=== PATIENT | female | born 1995 | race Caucasian/White ===

== ENCOUNTER 2017-11-23 16:24 | Emergency (ER) | payer OTHER ==
[~2017-11-23 16:24] MED LIST: CIPRO 500MG TA500 MG PO; NEXIUM 40MG40 MG PO
[2017-11-23 17:29] LABS: ABSOLUTE BASOPHIL COUNT 0 /CUMM (0.0-0.2); ABSOLUTE EOSINOPHIL COUNT 0.1 /CUMM (0.0-0.7); ABSOLUTE GRANULOCYTE CT 6.8 /CUMM (1.4-6.5); ABSOLUTE LYMPH COUNT 1.8 /CUMM (1.2-3.4); ABSOLUTE MONOCYTE COUNT 0.7 /CUMM (0.10-0.60); BASOPHIL % 0.2 % (0.0-2.0); EOSINOPHIL % 0.7 % (0-5); GRANULOCYTE % 72.5 % (42.2-75.2); HEMATOCRIT 40.1 % (37-47); MEAN CORPUSCULAR HGB 30.7 PG (27.0-31.0); MEAN CORPUSCULAR HGB CONC 34.2 G/DL (33.0-37.0); MEAN CORPUSCULAR VOLUME 89.7 FL (81.0-99.0); MEAN PLATELET VOLUME 8.6 FL (7.4-10.4); PLATELET COUNT 269 /CUMM (130-400); RBC DISTRIBUTION WIDTH 12.7 % (11.5-14.5); RED BLOOD CELL CT 4.48 /CUMM (4.20-5.40); WHITE BLOOD CELL COUNT 9.4 /CUMM (4.8-10.8)
--- NOTE | 2017-11-23 19:30 | ULTRASOUND REPORT ---
EXAMINATION: US ABDOMEN LIMITED CLINICAL INFORMATION: Right upper quadrant pain. COMPARISON: Abdominal ultrasound 08/29/2014 TECHNIQUE: Real-time imaging of the right upper quadrant abdominal viscera. Examination limited secondary to bowel gas and patient body habitus. FINDINGS: PANCREAS: The pancreas is obscured by overlying bowel gas and therefore cannot be accurately evaluated. LIVER: Poorly visualized. No gross hepatic lesion. No intrahepatic biliary ductal dilatation. GALLBLADDER: The gallbladder is physiologically distended. Some small echogenic foci within the gallbladder lumen likely represent a combination of echogenic bile and tiny gallstones. Negative sonographic Gomez's sign. COMMON BILE DUCT: Normal in caliber measuring 0.8 cm in diameter. RIGHT KIDNEY: Normal. No hydronephrosis. No renal calculi or focal parenchymal lesions. The kidney measures 11.3 cm in maximum dimension. FREE FLUID: None. IMPRESSION: 1. Examination limited secondary to patient body habitus and overlying bowel gas. The pancreas was not clearly visualized and there is poor visualization of the liver. 2. The gallbladder is physiologically distended with suggestion of echogenic bile and tiny gallstones. There is no ultrasound evidence to suggest acute cholecystitis. Clinical correlation recommended.
--- NOTE | 2017-11-23 22:00 | CT SCAN REPORT ---
EXAMINATION: CT ABDOMEN AND PELVIS WITH CONTRAST CLINICAL INFORMATION: Right upper quadrant pain. Concern for cholecystitis. COMPARISON: Same day abdominal ultrasound and abdominal ultrasound 08/29/2014 TECHNIQUE: Multidetector volumetric imaging was performed of the abdomen and pelvis following IV administration of 95 mL of Optiray 320 intravenous contrast. Sagittal and coronal reformatted images were obtained on the technologist's workstation. Examination limited secondary to quantum mottle artifact from patient body habitus. DLP: 1628 mGy-cm FINDINGS: Visualized lung bases are well aerated. The liver demonstrates normal size, contour and attenuation. No intrahepatic biliary ductal dilatation. The gallbladder is physiologically distended. Small gallstones are present dependently within the gallbladder. No CT evidence of gallbladder wall thickening. The pancreas, spleen and adrenal glands are unremarkable. Small splenule. The kidneys demonstrate symmetric enhancement without hydronephrosis. Retroaortic left renal vein. Postsurgical changes of the stomach. Normal caliber loops of small and large bowel. Normal appendix. The bladder is decompressed and therefore not accurately evaluated. No gross free pelvic fluid. No pelvic lymphadenopathy. Mild degenerative changes of the spine. IMPRESSION: No CT evidence for acute intra-abdominal or pelvic pathology. Cholelithiasis. No CT evidence to suggest acute cholecystitis. Clinical correlation recommended. Postsurgical changes of the stomach.
--- NOTE | 2017-11-23 22:34 | ED GENERAL ADULT ---
See Addendum History of Present Illness General Chief Complaint: Abdominal Pain/Flank Pain Stated Complaint: ABD PAIN H/O GALLSTONES Source: patient Exam Limitations: no limitations Vital Signs & Intake/Output Vital Signs & Intake/Output Vital Signs Date Time Temp Pulse Resp B/P B/P Pulse O2 O2 Flow FiO2 Mean Ox Delivery Rate 11/238 98.2 68 18 142/78 97 Room Air 11/23 2051 60 18 150/71 94 Room Air 11/23 1630 97.8 82 15 155/96 96 Room Air ED Intake and Output 11/24 0000 11/23 1200 Intake Total 0 Output Total Balance 0 Intake, Oral 0 Allergies Coded Allergies: NO KNOWN ALLERGIES (08/29/14) Reconcile Medications Ciprofloxacin (Cipro) 500 MG TABLET 1 TAB PO BID UTI Esomeprazole (Nexium) 40 MG CAPSULE.DR 1 CAP PO DAILY AC GI (Reported) Naproxen (Naprosyn) 500 MG TABLET 1 TAB PO BID PRN pain Ondansetron (Zofran Odt) 4 MG TAB.RAPDIS 1 TAB SL TID PRN nausea Triage Note: PT TO ED WITH C/O RUQ ABD PAIN SINCE LAST NIGHT. +NAUSEA, NO VOMITING. DENIES FEVERS. TAKING PO ABTS FOR STREP THROAT. DENIES CHANGES IN BOWEL OR BLADDER. Triage Nurses Notes Reviewed? yes Onset: Gradual Duration: hour(s): Timing: constant : No Patient currently breastfeeds: No HPI: 22-year-old female with a history of cholelithiasis presenting with right upper quadrant pain since approximately midnight last night. Patient reports gradual onset of right upper quadrant pain that feels similar to her prior biliary colic. States that her biliary colic has not flared up in about a year. She was previously seen by general surgery for elective cholecystectomy, but declined surgery at that time. Her pain is associated with nausea, no vomiting. Denies fevers, chest pain, shortness of breath, diarrhea, melena, dysuria, urinary urgency/frequency. (Mary Kate Ortiz) Past History Travel History Traveled to [place] past 21 day No Medical History Any Pertinent Medical History? 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 No (Mary Kate Ortiz) Review of Systems Review of Systems Constitutional: Reports: no symptoms. EENTM: Reports: no symptoms. Respiratory: Reports: no symptoms. Cardiovascular: Reports: no symptoms. GI: Reports: see HPI. Genitourinary: Reports: no symptoms. Musculoskeletal: Reports: no symptoms. Skin: Reports: no symptoms. Neurological/Psychological: Reports: no symptoms. Hematologic/Endocrine: Reports: no symptoms. Immunologic/Allergic: Reports: no symptoms. All Other Systems: Reviewed and Negative (Mary Kate Ortiz) Physical Exam Physical Exam General Appearance: well developed/nourished, no apparent distress, alert, awake , comfortable Comments: Gen.: Well-nourished, well-developed, no acute distress. Head: Normocephalic, atraumatic. Eyes: Normal inspection bilaterally Ears: Normal inspection bilaterally Nose: Normal inspection Neck: Normal inspection Lungs: clear to auscultation bilaterally, normnal breath sounds Heart: regular rate and rhythm Abdomen: soft and non-tender Extremities: Normal inspection Neurologic: alert and oriented x3, steady gait Skin: warm and dry Psychiatric: Normal mood and affect, no apparent delusions or hallucinations, behavior appropriate Core Measures ACS in differential dx? No CVA/TIA Diagnosis: No Sepsis Present: No Sepsis Focused Exam Completed? No (Mary Kate Ortiz) Progress Differential Diagnoses I considered the following diagnoses in my evaluation of the patient: [Biliary colic versus cholecystitis versus choledochal lithiasis versus cholangitis versus pancreatitis versus renal stone] Plan of Care: Orders Procedure Date/time Status Add-on Test (ER Only) 11/24 2007 Active HEPATITIS PANEL 11/23 1720 Complete URINE 11/23 1632 Complete URINALYSIS 11/23 1632 Complete LIPASE 11/23 163 Complete HEPATIC FUNCTION PANEL 11/23 1632 Complete CBC WITHOUT DIFFERENTIAL 11/23 163 Complete BASIC METABOLIC PANEL 11/23 1632 Complete Laboratory Tests 11/23/17 2015: Urinalysis LIGHT H, Urine Color YEL, Urine Clarity HAZY H, Urine pH 7.0, Ur Specific [place] 1.020, Urine Protein NEG, Urine Ketones NEG, Urine Nitrite NEG, Urine Bilirubin NEG@ICTO, Urine Urobilinogen 1.0, Ur Leukocyte Esterase NEG, Ur Microscopic SEDIMENT EXAMINED, Urine RBC RARE, Urine WBC RARE, Ur Epithelial Cells FEW, Urine Crystals 1+ [place] OX H, Urine Bacteria FEW H, Urine Mucus FEW, Urine Hemoglobin NEG, Urine Glucose NEG, Urine Test NEGATIVE 11/23/17 1720: Anion Gap 6, Estimated GFR > 60, BUN/Creatinine Ratio 16.7, Glucose 111 H, Calcium 9.2, Total Bilirubin 1.0, Direct Bilirubin 0.6 H, AST 642 H, ALT 549 H, Alkaline Phosphatase 103, Total Protein 7.2, Albumin 3.9, Lipase 129, CBC w Diff NO MAN DIFF REQ, RBC 4.48, MCV 89.7, MCH 30.7, MCHC 34.2, RDW 12.7, MPV 8.6 , Gran % 72.5, Lymphocytes % 19.6 L, Monocytes % 7.0, Eosinophils % 0.7, Basophils % 0.2, Absolute Granulocytes 6.8 H, Absolute Lymphocytes 1.8, Absolute Monocytes 0.7 H, Absolute Eosinophils 0.1, Absolute Basophils 0, Hepatitis A IgM Ab NONREACTIVE, Hep Bs Antigen NONREACTIVE, Hep B Core IgM Ab Conf NONREACTIVE, Hepatitis C Antibody NONREACTIVE US IMPRESSION: 1. Examination limited secondary to patient body habitus and overlying bowel gas. The pancreas was not clearly visualized and there is poor visualization of the liver. 2. The gallbladder is physiologically distended with suggestion of echogenic bile and tiny gallstones. There is no ultrasound evidence to suggest acute cholecystitis. Clinical correlation recommended. Ct scan IMPRESSION: No CT evidence for acute intra-abdominal or pelvic pathology. Cholelithiasis. No CT evidence to suggest acute cholecystitis. Clinical correlation recommended. Postsurgical changes of the stomach. Patient reports that her pain has been gradually self improving, and her abdomen remains soft and nontender. Her nausea is resolved after Zofran and she is tolerating p.o. intake without difficulty. Her labs are remarkable for significant new elevation in her AST and ALT. She states that she drank EtOH 2 nights ago. Hepatitis panel sent. She was instructed to follow-up with her PMD in 1 week for repeat lab testing, and further evaluation if her liver enzymes are still elevated. She was given follow-up with surgery to be reevaluated for elective cholecystectomy. Counseled on supportive care and strict return precautions. Given Rx naproxen and Zofran for symptomatic relief. Initial ED EKG: none (Mary Kate Ortiz) Departure Departure Disposition: HOME OR SELF CARE Condition: Stable Clinical Impression Primary Impression: Biliary colic Referrals: Jennifer Newton APRN (PCP/Family) Fernando WHITEHEAD,Jose Flores Additional Instructions: Use naproxen as needed for pain and Zofran as needed for nausea. Follow-up with your primary care provider and with surgery for reevaluation. Your primary care provider must repeat your metabolic panel in 1 week to recheck your liver functions. Return to the emergency department for any new or worsening symptoms. Departure Forms: Customer Survey General Discharge Information Prescriptions: Current Visit Scripts Naproxen (Naprosyn) 1 TAB PO BID PRN pain #60 TAB Ondansetron (Zofran Odt) 1 TAB SL TID PRN nausea #20 TAB (Mary Kate Ortiz) Critical Care Note Critical Care Note Critical Care Time: non-applicable (Mary Kate Ortiz)
[2017-11-23] MEDS ORDERED: ZOFRAN ODT4 M1 SL (22:36)
[2017-11-23] MEDS ORDERED: NAPROSYN500 M1 PO (22:36)
[2017-11-23 22:38] VITALS: BP 142/78
[2017-11-25] MEDS ORDERED: BUPROPION HCL150 M4 PO (20:16)
[2017-11-25] MEDS ORDERED: AMOXICILLIN500 M3 PO (20:16)
== END 2017-11-23 22:43 ==
LOC: ERH 16:24
PROVIDERS: Physician Assistant
DX: K80.50 Calculus of bile duct without cholangitis or cholecystitis without obstruction (principal); F17.210 Nicotine dependence, cigarettes, uncomplicated; F10.10 Alcohol abuse, uncomplicated
CPT/HCPCS: 74177; 81001; 81025; 96374; J2405